=== PATIENT | female | born 1990 | race Caucasian/White ===

== ENCOUNTER 2023-10-26 10:57 | Emergency (ER) | payer OTHER, SELFPAY ==
[2023-10-26 10:58] VITALS: BP 151/78; PULSE 88; RESP 14; TEMP 36.5; O2SAT 100; BMI 28.0
--- NOTE | 2023-10-26 11:11 | CT_ITS ---
STUDY: CT ABDOMEN AND PELVIS WITH CONTRAST REASON FOR EXAM: Female, 33 years old. Right lower quadrant pain for 10 days. Nausea. RADIATION DOSAGE (If Supplied By Facility): CTDIvol = ( 14.51 ) mGy, DLP = ( 624.95 ) mGycm TECHNIQUE: Transaxial images were obtained from the dome of the diaphragm to the symphysis pubis without oral contrast. IV 100mL Isovue-300 was administered. Sagittal and coronal images were reconstructed. Individualized dose optimization techniques were used for this CT. COMPARISON: None. FINDINGS: The visualized lung bases are unremarkable. The visualized portions of the heart are within normal limits. Normal liver. Normal gallbladder and extrahepatic biliary system. Normal spleen. Normal pancreas. Normal bilateral adrenal glands. Normal right kidney. 8 mm cyst in the posterior midportion of the left kidney. Normal visualized stomach. Normal small intestine. Normal colon. The appendix is visualized and appears normal. Small lymph nodes are seen in the mesenteric fat in the right lower quadrant suggestive of a mesenteric adenitis. Normal abdominal aorta. Normal inferior vena cava. Normal retroperitoneum. Normal urinary bladder. A ring is seen surrounding the cervix. Follicles are seen in the right ovary. Normal abdominal wall. Normal osseous structures. CT/Abdomen/Pelvis W IV Cont ONLY IMPRESSION: Small lymph nodes are seen within the mesentery in the right lower quadrant suggesting mesenteric adenitis. The appendix is unremarkable. Follicles are seen in the right ovary. A ring is seen surrounding the cervix most likely for incompetent cervix. Electronically Signed: Abdiel Araujo MD at 12:53 EDT ,
--- NOTE | 2023-10-26 11:12 | ED.VIS.GI ---
HPI HPI - GI History of Present Illness Chief Complaint: Abd Pain Narrative Narrative: 33-year-old female who denies significant past medical history presents with right lower quadrant abdominal pain that she has had on and off for the last week to week and a half. She states that is very intermittent over the last week. She has had history of ovarian cyst with rupture and thought maybe it was that. However, she states that at 2:00 this morning, she awoke with stabbing pain in the right lower quadrant. She is nauseated but not vomiting. She denies any problems with bowel movements, no dysuria or hematuria. She states that on Tuesday, she had irregular vaginal bleeding, more than spotting. Of note, she states that she does use contraception with NuvaRing and usually does not have menstrual periods. PFSH PFSH Medical History no medical history Home Medications ?Medication ?Instructions ?Recorded ?Last Taken ?Type NK 10/26/23 Unknown History Allergy/AdvReac Type Severity Reaction Status Date / Time No Known Allergies Allergy Verified 10/26/23 11:04 Surgical History no surgical history Social History Smoking Status: Never smoker ROS ROS ED ROS Narrative Constitutional: No fever, no chills. HEENT: No sore throat. No neck pain. No loss of vision. No rhinorrhea. Cardiovascular: No chest pain. No palpitations. No pedal edema. Respiratory: No cough, no shortness of breath. Abdominal: Right lower quadrant abdominal pain. Positive nausea. No vomiting. No problems with bowel movements. Genitourinary: No dysuria. No hematuria. Irregular vaginal bleeding on Tuesday, approximately 6 days ago. Musculoskeletal: No myalgias. No arthralgias. Neurologic: No headaches. No dizziness. No lightheadedness. Skin: No rash. No change in color. Psychiatric: No depression. No anxiety. EXAM Physical Exam Narrative Exam Narrative: Afebrile. Vital signs noted. HEENT: Normocephalic. Atraumatic. PERRL, EOMI. Neck soft and supple. No point tenderness or step off. Cardiovascular: Regular rate and rhythm. No murmurs, rubs, or gallops appreciated. Respiratory: No tachypnea. Lungs clear to auscultation bilaterally. Gastrointestinal: Abdomen soft, mild tenderness over McBurney's point with normoactive bowel sounds. No rebound or guarding. Negative heel strike. Negative Rovsing sign. Neurological: Awake. Alert. Nonfocal, nonlateralizing. Skin: No rash. Normal color. No pallor. Musculoskeletal: No pedal edema. Full range of motion extremities. Const Vital Signs: 10/26/23 10:58 10/26/23 13:00 Temperature 97.7 F L Temperature Source Temporal Pulse Rate 88 69 Respiratory Rate 14 16 Blood Pressure 151/78 H 134/59 H Blood Pressure Mean 102 84 Pulse Ox 100 99 Oxygen Delivery Method Room Air Room Air MDM MDM MDM Narrative Medical decision making narrative: In the differential diagnosis is acute appendicitis versus ovarian cyst rupture versus ectopic . Comprehensive workup was pursued. She was bolused normal saline 1 L intravenously and administered morphine 4 mg intravenously for analgesia along with ondansetron 4 mg intravenously for her nausea. However, I was informed by the RN that she refused all medications. I reviewed her laboratory work and she has normal white count of 5.1, hemoglobin normal at 14.4, hematocrit 42.4, platelet count normal at 242. CMP is remarkable for potassium of 3.4 which I think is nonspecific, glucose of 102 with BUN of 9 and creatinine 0.86. Urinalysis is negative for infection, serum is negative so I doubt ectopic . I reviewed the radiology report of the CT of the abdomen pelvis with IV contrast. There is evidence of mesenteric adenitis. Appendix was visualized and is normal. There is no free fluid in the pelvis so I doubt ruptured ovarian cyst. At this point in time, upon repeat examination, patient states that she feels well as long as she does not move. I had offered to write her stronger pain medication, but she declined and has elected to take [id number] medications. I referred her to her primary care provider. Given her negative workup here, I do feel that she can be discharged to follow-up. Return instructions to the emergency department were reviewed. Disposition is discharged home in stable condition. History & Record Review Discussion w/independent historian: Patient and Significant other Lab Data Attestation: I reviewed the patient's lab results. Labs: Laboratory Results - last 24 hr 10/26/23 11:30 WBC 5.1 RBC 4.94 Hgb 14.4 Hct 42.4 MCV 85.8 MCH 29.1 MCHC 34.0 RDW Std Deviation 36.3 RDW Coeff of Lorelei 11.5 L Plt Count 242 MPV 10.9 Immature Gran % (Auto) 0.000 Neut % (Auto) 53.6 Lymph % (Auto) 38.9 Edwards % (Auto) 5.5 Eos % (Auto) 1.2 Baso % (Auto) 0.8 Absolute Neuts (auto) 2.8 Absolute Lymphs (auto) 1.99 Nucleated RBC % 0 Sodium 138 Potassium 3.4 L Chloride 108 H Carbon Dioxide 26.0 Anion Gap 4 L BUN 9 Creatinine 0.86 Estim Creat Clear Calc 93.52 Est GFR (MDRD) Af Amer 100 Est GFR (MDRD) Non-Af 82 BUN/Creatinine Ratio 10.5 Glucose 102 Calcium 9.5 Serum , Qual NEGATIVE Urine Color Straw Urine Clarity Clear Urine pH 7.0 Ur Specific Malone 1.005 Urine Protein Negative Urine Glucose (UA) Normal Urine Ketones Negative Urine Occult Blood Negative Urine Nitrite Negative Urine Bilirubin Negative Urine Urobilinogen Normal Ur Leukocyte Esterase Negative Urine RBC 0 SEEN Urine WBC 0 SEEN Ur Squamous Epith Cells 0 SEEN Urine Bacteria 0 SEEN Urine Mucus 0 SEEN Radiography Diagnostic Testing: Clinical Impression(s) from Imaging Studies Abdomen/Pelvis CT 10/26/23 11:11 IMPRESSION: Small lymph nodes are seen within the mesentery in the right lower quadrant suggesting mesenteric adenitis. The appendix is unremarkable. Follicles are seen in the right ovary. A ring is seen surrounding the cervix most likely for incompetent cervix. Electronically Signed: Abdiel Araujo MD at 12:53 EDT , Discharge Plan Triage Chief Complaint: Abd Pain ED Provider: Kwesi Hammond Dx/Rx/DC Orders Clinical Impression: Abdominal pain, RLQ, Mesenteric adenitis Instructions: ED Abdominal Pain Unkn Cause Fem, ED Adenitis, Mesenteric Prescriptions: No Action NK Primary Care Provider: Care Physician,No Primary Referrals: Aureliano Kaba MD [Med Staff - Active Staff] - 3-5 Days if not improving Care Physician,No Primary [Primary Care Provider] - Activity Restrictions/Additional Instructions: Return with increased pain, new or worsening symptoms. Print Language: Slovak Disposition Disposition: Home, Self Care
[2023-10-26] MEDS: 0.9% Normal Saline (1000mL) 1,000 ML 999 ML IV (11:33)
[2023-10-26 11:43] LABS: Bacteria 0 SEEN /hpf (None Seen); Mucous, Urine 0 SEEN /hpf (<or=2+); Red Blood Cells-Urine 0 SEEN /hpf (0-5); Squamous Epithelial Cells - UA 0 SEEN /hpf (5-10); White Blood Cells 0 SEEN /hpf (0-5)
[2023-10-26 11:46] LABS: Color, Urine Straw (Yellow); Glucose, Dipstick Normal (Normal); Ketone-Dipstick Negative (Negative); Leukocyte Esterase-Dipstick Negative /ul (Negative); Nitrite-Dipstick Negative (Negative); Occult Blood-Urine Negative /ul (Negative); Protein-Dipstick Negative (Negative); Specific Gravity, Urine 1.005 (1.002-1.030); Urine Bilirubin Dipstick Negative (Negative); Urine Clarity Clear (Clear); Urine Urobilinogen Normal (Normal)
[2023-10-26 11:54] LABS: Absolute Lymphocyte Count 1.99 X10^3/uL (0.83-4.51); Absolute Neutrophil Count 2.8 X10^3/uL (2.0-7.7); Basophil# 0.04 X10^3/uL; Basophil% 0.8 % (0-1); Eosinophil# 0.06 X10^3/uL; Eosinophils% 1.2 % (0-5); Hematocrit 42.4 % (37-47); Hemoglobin 14.4 g/dL (12.0-15.0); Lymphocyte # 1.99 X10^3/ul (0.83-4.51); Lymphocyte % 38.9 % (19-41); Mean Corpuscular Hgb 29.1 pg (27.0-32.0); Mean Corpuscular Volume 85.8 fL (81-99); Mean Platelet Vol. 10.9 fl (6.2-12.0); Monocyte# 0.28 X10^3/uL; Monocyte% 5.5 % (0-10); NRBC Flagged by Analyzer 0 % (0-5); Neutrophil # 2.75 X10^3/uL (2.7-7.7); Neutrophil % 53.6 % (47-70); Platelet Count 242 K/mm3 (150-450); RBC Distribution Width CV 11.5 % (11.6-14.6); RBC Distribution Width SD 36.3 fl (35.1-43.9); Red Blood Count 4.94 M/mm3 (4.2-5.4); White Blood Count 5.1 K/mm3 (4.4-11.0)
[2023-10-26 11:59] LABS: Internal QC Validated? YES +Cl - CLEAR BKGD; Pregnancy, Serum, hCG Quali. NEGATIVE Negative
[2023-10-26 12:03] LABS: Anion Gap 4 (5-15); BUN 9 mg/dL (7-18); BUN/Creat Ratio 10.5 RATIO (10-20); Calcium,Total 9.5 mg/dL (8.5-10.1); Chloride 108 mmol/L (98-107); Creatinine, Serum 0.86 mg/dL (0.55-1.02); EST Glomerular Filtration Rate 82 mL/min (>60); Est Glom Filt Rate - Afr Amer 100 mL/min (>60); Estimated Creatinine Clearance 93.52 ml/min; Glucose 102 mg/dL (74-106); Potassium 3.4 mmol/L (3.5-5.1); Sodium Level 138 mmol/L (136-145)
[2023-10-26 13:00] VITALS: BP 134/59; PULSE 69; RESP 16; O2SAT 99
[2023-10-26 13:49] VITALS: BP 125/67; PULSE 69; RESP 14; TEMP 36.1; O2SAT 100
== END 2023-10-26 13:55 | disposition home or self-care (01) ==
PROVIDERS: Emergency Provider Emergency Medicine; Visit Provider Emergency Medicine
DX: R10.31 Right lower quadrant pain (principal); R11.0 Nausea; I88.0 Nonspecific mesenteric lymphadenitis
CPT/HCPCS: 74177; 80048; 81001; 84703; 85025; 96361; 96374; 96375; 99282; J7030; Q9967; A4216; J2405